=== PATIENT | female | born 1980 | race Two or more races ===

== ENCOUNTER 2019-06-24 15:44 | Emergency (ER) | payer MEDICAID ==
[~2019-06-24] VITALS: Ht 167.6 cm; Wt 55.0 kg
[2019-06-24] MEDS ORDERED: SODIUM CHLORIDE 0.9% 1,000 ML IV ONE (16:17)
[2019-06-24] MEDS ORDERED: KETOROLAC 30MG/ML VIAL IV STA (16:17)
[2019-06-24 16:55] LABS: BASOPHILS % 0.3 % (0.0-2.0); EOSINOPHILS % 1.5 % (0.0-5.0); HEMATOCRIT. 35.2 % (36.0-48.0); HEMOGLOBIN. 12.3 g/dL (12.0-16.0); MEAN CORPUSCULAR HEMOGLOBIN 30.9 pg (28.0-32.0); MEAN CORPUSCULAR VOLUME 88.8 fL (81.0-99.0); MEAN PLATELET VOLUME 8.8 fl (7.4-10.4); MONOCYTES % 6.8 % (2.0-8.0); NEUTROPHILS % 65.4 % (40.0-76.0); PLATELET 221 x1000/uL (130-400); RED BLOOD CELL COUNT 3.97 mill/uL (4.2-5.4); RED CELL DISTRIBUTION WIDTH 13.7 % (11.6-14.6)
[2019-06-24 16:57] LABS: CLARITY URINE CLOUDY (CLEAR); COLOR URINE YELLOW (YELLOW); KETONES URINE NEGATIVE (NEGATIVE); LEUKOCYTE ESTERASE URINE NEGATIVE (NEGATIVE); NITRITE URINE NEGATIVE (NEGATIVE); OCCULT BLOOD URINE TRACE (NEGATIVE); PH URINE 5.5 (4.5-8.0); PROTEIN URINE NEGATIVE (NEGATIVE); SPECIFIC GRAVITY URINE 1.022 (1.005-1.030); UROBILINOGEN URINE 0.2 E.U./dL (0.2-1.0)
[2019-06-24 16:58] LABS: CHLORIDE 109 mEq/L (98-107)
[2019-06-24 16:59] LABS: PROTHROMBIN TIME 10.2 sec (9.6-11.0)
[2019-06-24 19:30] VITALS: BP 96/57
== END 2019-06-24 19:38 | disposition home or self-care (01) ==
LOC: ER 15:44
DX: M54.89 Other dorsalgia (principal); R10.9 Unspecified abdominal pain; M25.571 Pain in right ankle and joints of right foot; G82.20 Paraplegia, unspecified
CPT/HCPCS: 36415; 80053; 81003; 81025; 83690; 85025; 85610; 96374; 99283; J1885; J7030

== ENCOUNTER 2019-10-07 15:26 | Emergency (ER) | payer MEDICAID ==
[~2019-10-07] VITALS: Ht 162.6 cm; Wt 60.0 kg
[~2019-10-07 15:26] MED LIST: BACL20TA PO; CEPH-569 MT; GABA800T PO; IBUP-2028 PO; MIDO10TA MT; TRAM100C3 PO
[2019-10-07] MEDS ORDERED: KETOROLAC 60MG/2ML VIAL IM STA (15:50)
[2019-10-07] MEDS ORDERED: HYDROCODONE/ACETAMINOPHEN 5/325MG TABLET PO ONE (17:30)
[2019-10-07 18:45] VITALS: BP 102/63
== END 2019-10-07 18:55 | disposition home or self-care (01) ==
LOC: ER 15:26
DX: M54.89 Other dorsalgia (principal); G82.20 Paraplegia, unspecified; R03.0 Elevated blood-pressure reading, without diagnosis of hypertension; Z87.828 Personal history of other (healed) physical injury and trauma; Z79.899 Other long term (current) drug therapy
CPT/HCPCS: 71045; 96372; 99283; J1885; Z7610

== ENCOUNTER 2019-12-28 15:56 | Emergency (ER) | payer MEDICAID ==
[~2019-12-28] VITALS: Ht 162.6 cm; Wt 68.0 kg
[2019-12-28] MEDS ORDERED: KETOROLAC 60MG/2ML VIAL IM ONE (21:15)
[2019-12-28 21:23] VITALS: BP 135/80
== END 2019-12-28 21:24 | disposition home or self-care (01) ==
LOC: ER 15:56
DX: G89.29 Other chronic pain (principal); M54.5 Low back pain; G82.20 Paraplegia, unspecified; Z88.2 Allergy status to sulfonamides; Z79.899 Other long term (current) drug therapy
CPT/HCPCS: 96372; 99283; J1885

== ENCOUNTER 2019-12-30 08:09 | Emergency (ER) | payer MEDICAID ==
[~2019-12-30] VITALS: Ht 162.6 cm; Wt 63.0 kg
[2019-12-30 08:23] VITALS: BP 115/74
[2019-12-30] MEDS ORDERED: KETOROLAC 60MG/2ML VIAL IM ONE (10:30)
[2019-12-30] MEDS ORDERED: LIDOCAINE HCL 2% JELLY 5ML MM ONE (10:30)
[2019-12-30] MEDS ORDERED: LIDOCAINE HCL 2% JELLY 5ML MM NR (10:45)
== END 2019-12-30 11:20 | disposition home or self-care (01) ==
LOC: ER 08:09
DX: K60.2 Anal fissure, unspecified (principal); K59.00 Constipation, unspecified; Z88.2 Allergy status to sulfonamides; G82.20 Paraplegia, unspecified
CPT/HCPCS: 96372; 99283; J1885

== ENCOUNTER 2024-09-09 03:04 | Emergency (ER) | payer MEDICAID ==
[~2024-09-09] VITALS: Ht 170.2 cm; Wt 65.0 kg
[2024-09-09 03:22] VITALS: O2SAT 99
[2024-09-09 06:56] LABS: CHLORIDE 109 mEq/L (98-107); POTASSIUM 3.5 mEq/L (3.5-5.1); SODIUM 139 mEq/L (136-145)
[2024-09-09 06:57] LABS: CALCIUM 8.5 mg/dL (8.7-10.4); CARBON DIOXIDE 26 mEq/L (21-32)
[2024-09-09 06:59] LABS: HCG SCREEN NEGATIVE
[2024-09-09 07:02] LABS: CREATININE 0.5 mg/dL (0.6-1.0); GLUCOSE 97 mg/dL (70-105); UREA NITROGEN BLOOD 6 mg/dL (9-23)
[2024-09-09 07:04] LABS: ALANINE AMINOTRANSFERASE < 7 IU/L (10-49); ALBUMIN 3.4 g/dL (3.2-4.8); ASPARTATE AMINOTRANSFERASE 11 IU/L (<34); BILIRUBIN DIRECT 0.1 mg/dL (<=3.0)
[2024-09-09 07:05] LABS: BILIRUBIN TOTAL 0.4 mg/dL (0.1-1.0); PROTEIN TOTAL 6.4 g/dL (6.0-8.3); PROTHROMBIN TIME 10.9 sec (9.6-11.0)
[2024-09-09 07:06] LABS: BASOPHILS % 0.6 % (0.0-2.0); DIFFERENTIAL COMMENT 0; EOSINOPHILS % 0.6 % (0.0-5.0); HEMATOCRIT. 30.9 % (36.0-48.0); HEMOGLOBIN. 9.9 g/dL (12.0-16.0); LYMPHOCYTES % 32.6 % (20.0-50.0); MEAN CORPUSCULAR HEMOGLOBIN 25.1 pg (28.0-32.0); MEAN CORPUSCULAR VOLUME 78.4 fL (81.0-99.0); MEAN PLATELET VOLUME 7.8 fl (7.4-10.4); MONOCYTES % 6.4 % (2.0-8.0); NEUTROPHILS % 59.8 % (40.0-76.0); PLATELET 361 x1000/uL (130-400); RED BLOOD CELL COUNT 3.94 mill/uL (4.2-5.4); WHITE BLOOD COUNT 8.3 x1000/uL (4.5-11.0)
[2024-09-09 07:54] LABS: ETHANOL BLOOD < 10 mg/dL (<10)
[2024-09-09] MEDS: ACETAMINOPHEN 325MG TABLET PO ONE (08:20)
[2024-09-09 09:49] LABS: CLARITY URINE CLOUDY (CLEAR); COLOR URINE YELLOW (YELLOW); GLUCOSE URINE NEGATIVE (NEGATIVE); KETONES URINE NEGATIVE (NEGATIVE); LEUKOCYTE ESTERASE URINE 1+ (NEGATIVE); NITRITE URINE POSITIVE (NEGATIVE); OCCULT BLOOD URINE 3+ (NEGATIVE); PROTEIN URINE NEGATIVE (NEGATIVE); SPECIFIC GRAVITY URINE 1.013 (1.005-1.030)
[2024-09-09 10:02] LABS: MUCUS URINE 4+ /lpf (< = 2+); SQUAMOUS EPITHELIAL CELL URINE FEW /lpf (RARE/1+)
[2024-09-09 10:04] LABS: BACTERIA URINE 4+
[2024-09-09 10:18] LABS: *AMPHETAMINES SCREEN URINE NEGATIVE (NEGATIVE); *BENZODIAZEPINES SCREEN URINE NEGATIVE (NEGATIVE)
[2024-09-09 10:19] LABS: *BARBITURATES SCREEN URINE NEGATIVE (NEGATIVE); *COCAINE SCREEN URINE NEGATIVE (NEGATIVE); CANNABINOID URINE SCREEN NEGATIVE (NEGATIVE); ECSTASY MDMA SCREEN URINE NEGATIVE (NEGATIVE); METHADONE URINE SCREEN NEGATIVE (NEGATIVE); OPIATES URINE SCREEN NEGATIVE (NEGATIVE); PHENCYCLIDINE URINE SCREEN NEGATIVE (NEGATIVE)
[2024-09-09] MEDS ORDERED: CEFP100T8 MT (11:24)
[2024-09-09 12:26] VITALS: BP 137/80; PULSE 81; RESP 16; TEMP 36.11400; O2SAT 99
== END 2024-09-09 12:26 | disposition home or self-care (01) ==
LOC: ER 03:20
DX: N39.0 Urinary tract infection, site not specified (principal); Z88.2 Allergy status to sulfonamides; Z79.899 Other long term (current) drug therapy
CPT/HCPCS: 36415; 74176; 80048; 80076; 80305; 80320; 81003; 84703; 85025; 87077; 87186; 93005; 99284; G0480

== ENCOUNTER 2025-06-15 21:16 | Inpatient (IN) | payer MEDICAID ==
[~2025-06-15] VITALS: Ht 162.6 cm; Wt 52.2 kg
[~2025-06-15 21:16] MED LIST changes: +CEFP100T8 MT; -MIDO10TA MT; +MIDO10TA3 MT
[2025-06-15 21:18] VITALS: O2SAT 99
[2025-06-15] MEDS: KETOROLAC 15MG/ML VIAL IV ONE (23:43)
[2025-06-15] MEDS: SODIUM CHLORIDE 0.9% 1,000 ML IV ONE (23:44)
[2025-06-16] LABS: CREATININE 0.4 mg/dL (0.6-1.0); UREA NITROGEN BLOOD 9 mg/dL (9-23)
[2025-06-16 00:01] LABS: HEMATOCRIT. 26.2 % (36.0-48.0); HEMOGLOBIN. 8.4 g/dL (12.0-16.0); MEAN PLATELET VOLUME 6.5 fl (7.4-10.4); PLATELET 863 x1000/uL (130-400); RED BLOOD CELL COUNT 3.76 mill/uL (4.2-5.4); RED CELL DISTRIBUTION WIDTH 26.7 % (11.6-14.6)
[2025-06-16 01:09] LABS: LYMPHOCYTES % MANUAL 18.0 % (20.0-60.0); MONOCYTES % MANUAL 6.0 % (2.0-8.0); NEUTROPHILS % MANUAL 76.0 % (45.0-75.0)
[2025-06-16 01:10] LABS: PLATELET ESTIMATE MARKEDLY INCREASED
[2025-06-16 04:42] LABS: CLARITY URINE CLOUDY (CLEAR); COLOR URINE YELLOW (YELLOW); GLUCOSE URINE NEGATIVE (NEGATIVE); KETONES URINE NEGATIVE (NEGATIVE); LEUKOCYTE ESTERASE URINE TRACE (NEGATIVE); NITRITE URINE NEGATIVE (NEGATIVE); OCCULT BLOOD URINE 2+ (NEGATIVE); PH URINE 6.0 (4.5-8.0); PROTEIN URINE 1+ (NEGATIVE); SPECIFIC GRAVITY URINE 1.009 (1.005-1.030); UROBILINOGEN URINE 1.0 E.U./dL (0.2-1.0)
[2025-06-16] MEDS: MORPHINE SULFATE 4 MG/ML INJ (FOR IV/IM USE) IV ONE (05:06)
[2025-06-16] MEDS ORDERED: NALO4SPR22 (06:29)
[2025-06-16] MEDS ORDERED: NAPR-681 PO (06:29)
[2025-06-16 06:36] LABS: BACTERIA URINE 2+; SQUAMOUS EPITHELIAL CELL URINE FEW /lpf (RARE/1+); WBC URINE 0-2 /hpf (0-2)
[2025-06-16 08:00] VITALS: BP 88/44; PULSE 119; RESP 20; TEMP 36.8628
[2025-06-16] MEDS ORDERED: ONDANSETRON HCL 4MG/2ML INJ IV PRN (08:15)
[2025-06-16] MEDS ORDERED: MAGNESIUM/ALUMINUM HYDROXIDE/SIMETHICONE 30ML UDC PO PRN (08:15)
[2025-06-16] MEDS ORDERED: DOCUSATE SODIUM 100MG CAPSULE PO PRN (08:15)
[2025-06-16] MEDS ORDERED: IPRATROPIUM/ALBUTEROL 0.5-3(2.5)MG/3ML NEB HHN PRN (08:15)
[2025-06-16] MEDS ORDERED: CLONIDINE 0.1MG TABLET PO PRN (08:15)
[2025-06-16] MEDS ORDERED: GUAIFENESIN 200MG/10ML SUGAR FREE UDC PO PRN (08:15)
[2025-06-16] MEDS ORDERED: NALOXONE HCL 0.4MG/ML VIAL IV PRN (09:30)
[2025-06-16] MEDS: MORPHINE SULFATE 2 MG/ML INJ (NOT FOR IM USE) IV PRN (09:55)
[2025-06-16] MEDS: ENOXAPARIN 40MG/0.4ML SYR SUBCUT SCH (09:55)
[2025-06-16] MEDS: POTASSIUM CHLORIDE 20MEQ TABLET SR PO NR (09:56)
[2025-06-16 10:11] VITALS: BP_SYST 80; BP_SYST 88; BP_DIAS 40; BP_DIAS 44; PULSE 126; RESP 18; TEMP 36.8; TEMP 37.1; O2SAT 98
[2025-06-16] MEDS: SODIUM CHLORIDE 0.9% 1,000 ML IV SCH (10:44)
[2025-06-16] MEDS: VANCOMYCIN 1.25GM/250ML 250 ML IV SCH (11:00)
[2025-06-16] MEDS: CEFTRIAXONE 1GM/50ML 100 ML IV SCH (11:09)
[2025-06-16 12:00] VITALS: BP 88/44; PULSE 119; RESP 18; TEMP 36.8; O2SAT 98
[2025-06-16] MEDS: PANTOPRAZOLE SODIUM 40 MG/VIAL IV SCH (13:39)
[2025-06-16 16:00] VITALS: BP 105/61; PULSE 110; RESP 18; TEMP 36.7; O2SAT 96
[2025-06-16] MEDS: HYDROCODONE/ACETAMINOPHEN 7.5/325MG TABLET PO PRN (18:49)
[2025-06-16 20:00] VITALS: BP 112/70; PULSE 88; RESP 17; TEMP 36.1; O2SAT 97
[2025-06-16] MEDS: VANCOMYCIN 1G PREMIX 200 ML IV SCH (20:51)
[2025-06-16 22:34] LABS: FOLIC ACID (FOLATE) SERUM 6.75 ng/mL (>5.38)
[2025-06-16 22:35] LABS: VITAMIN B12 SERUM 250 pg/mL (211-911)
[2025-06-17] VITALS: BP 123/78; PULSE 78; RESP 18; TEMP 36.4; O2SAT 98
[2025-06-17 04:00] VITALS: BP 110/76; PULSE 74; RESP 17; TEMP 36.6; O2SAT 99
[2025-06-17 07:31] LABS: BASOPHILS % 0.7 % (0.0-2.0); EOSINOPHILS % 0.3 % (0.0-5.0); HEMATOCRIT. 24.1 % (36.0-48.0); HEMOGLOBIN. 7.9 g/dL (12.0-16.0); LYMPHOCYTES % 18.6 % (20.0-50.0); MEAN PLATELET VOLUME 6.4 fl (7.4-10.4); MONOCYTES % 6.6 % (2.0-8.0); NEUTROPHILS % 73.8 % (40.0-76.0); PLATELET 719 x1000/uL (130-400); RED BLOOD CELL COUNT 3.50 mill/uL (4.2-5.4); RED CELL DISTRIBUTION WIDTH 26.7 % (11.6-14.6)
[2025-06-17] MEDS ORDERED: NON FORMULARY MED XX SCH ×2 (07:45→14:00)
[2025-06-17] MEDS: MAGNESIUM 2 G PREMIX 50 ML IV NR (07:45)
[2025-06-17 07:50] LABS: TRIGLYCERIDE 111 mg/dL (0-150); UREA NITROGEN BLOOD 7 mg/dL (9-23)
[2025-06-17 07:53] LABS: CREATININE 0.3 mg/dL (0.6-1.0)
[2025-06-17 07:54] LABS: ASPARTATE AMINOTRANSFERASE 48 IU/L (<34)
[2025-06-17 07:55] LABS: BILIRUBIN DIRECT < 0.1 mg/dL (<=3.0); LDL CHOLESTEROL 79 mg/dL (5-100)
[2025-06-17 07:56] LABS: BILIRUBIN TOTAL 0.2 mg/dL (0.1-1.0); PROTEIN TOTAL 5.6 g/dL (6.0-8.3)
[2025-06-17 07:58] LABS: T4 FREE 1.09 ng/dL (0.89-1.76)
[2025-06-17 08:00] VITALS: BP 127/74; PULSE 74; RESP 18; TEMP 36.1; O2SAT 100
[2025-06-17 08:05] LABS: ADD RBC MORPHOLOGY YES
[2025-06-17] MEDS: PIPERACILLIN/TAZO 3.375G/50ML 50 ML IV SCH (09:04)
[2025-06-17] MEDS ORDERED: LIDOCAINE HCL/EPINEPHRINE 1%-EPI 1:100,000 10ML VIAL INFIL NR (11:00)
[2025-06-17] MEDS: IRON SUCROSE COMPLEX 100 MG/5 ML ML IV SCH (11:14)
[2025-06-17] MEDS: ZINC SULFATE 220 MG ( 50 ) CAPSULE PO SCH (11:14)
[2025-06-17] MEDS: ASCORBIC ACID 500 MG TABLET PO SCH (11:15)
[2025-06-17 12:00] VITALS: BP 102/66; PULSE 84; RESP 19; TEMP 36; O2SAT 95
[2025-06-17 13:58] LABS: PLATELET ESTIMATE INCREASED
[2025-06-17] MEDS ORDERED: IRON SUCROSE COMPLEX 100 MG/5 ML ML IV SCH (14:30)
[2025-06-17] MEDS: POTASSIUM CHLORIDE 20MEQ TABLET SR PO NR (14:48)
[2025-06-17 16:00] VITALS: BP 120/83; PULSE 80; RESP 18; TEMP 36.1; O2SAT 99
[2025-06-17] MEDS: SODIUM CHLORIDE 0.9% 1,000 ML IV SCH (20:32)
[2025-06-18] VITALS: BP 117/52; PULSE 82; RESP 20; TEMP 36.3; O2SAT 100
[2025-06-18] MEDS: SODIUM HYPOCHLORITE 0.125% 473ML SOLUTION TOP SCH (00:28)
[2025-06-18 08:00] VITALS: BP 99/57; PULSE 87; RESP 18; TEMP 36; O2SAT 95
[2025-06-18 08:56] LABS: BASOPHILS % 0.6 % (0.0-2.0); EOSINOPHILS % 0.3 % (0.0-5.0); HEMATOCRIT. 22.9 % (36.0-48.0); HEMOGLOBIN. 7.4 g/dL (12.0-16.0); LYMPHOCYTES % 17.6 % (20.0-50.0); MEAN PLATELET VOLUME 6.5 fl (7.4-10.4); MONOCYTES % 7.4 % (2.0-8.0); NEUTROPHILS % 74.1 % (40.0-76.0); PLATELET 707 x1000/uL (130-400); RED BLOOD CELL COUNT 3.33 mill/uL (4.2-5.4); RED CELL DISTRIBUTION WIDTH 26.1 % (11.6-14.6)
[2025-06-18] MEDS: ENOXAPARIN 30MG/0.3ML SYR SUBCUT SCH (09:00)
[2025-06-18 09:04] LABS: ADD RBC MORPHOLOGY NO
[2025-06-18 09:12] LABS: UREA NITROGEN BLOOD 9 mg/dL (9-23)
[2025-06-18 09:14] LABS: PHOSPHORUS 4.4 mg/dL (2.5-4.9)
[2025-06-18 09:22] LABS: CREATININE 0.4 mg/dL (0.6-1.0)
[2025-06-18] MEDS: MAGNESIUM 2 G PREMIX 50 ML IV ONE (10:15)
[2025-06-18 12:00] VITALS: BP 87/56; PULSE 100; RESP 20; TEMP 36.1; O2SAT 100
[2025-06-18] MEDS: KCL 20MEQ/100ML PREMIX 100 ML IV SCH (12:02)
[2025-06-18] MEDS: VANCOMYCIN 750MG/150ML (BAXTER) IV SCH (13:07)
[2025-06-18] MEDS: MIDODRINE HCL 5MG TABLET PO PRN (13:51)
[2025-06-18] MEDS: POTASSIUM CHLORIDE 20MEQ TABLET SR PO SCH (15:21)
[2025-06-18 16:00] VITALS: BP 97/56; PULSE 100; RESP 20; TEMP 36.2; O2SAT 100
[2025-06-18 20:00] VITALS: BP 97/58; PULSE 100; RESP 20; TEMP 36.3; O2SAT 98
[2025-06-18] MEDS: ACETAMINOPHEN 325MG TABLET PO PRN (22:47)
[2025-06-19] VITALS (8 sets, daily range): BP systolic 81–108; BP diastolic 48–64; PULSE 79–101; RESP 18–22; TEMP 36.2–36.7; O2SAT 95–100
[2025-06-19] MEDS: SODIUM CHLORIDE 0.9% 1,000 ML IV ONE ×2 (02:14→08:57)
[2025-06-19 06:23] LABS: CREATININE 0.9 mg/dL (0.6-1.0); UREA NITROGEN BLOOD 15 mg/dL (9-23)
[2025-06-19 07:15] LABS: PLATELET 648 x1000/uL (130-400); RED BLOOD CELL COUNT 2.75 mill/uL (4.2-5.4); RED CELL DISTRIBUTION WIDTH 26.0 % (11.6-14.6)
[2025-06-19] MEDS: MIDODRINE HCL 5MG TABLET PO SCH (10:19)
[2025-06-19] MEDS: MAGNESIUM 4 G PREMIX 100 ML IV ONE (10:25)
[2025-06-19 10:27] LABS: INR 1.0
[2025-06-19] MEDS ORDERED: CYANOCOBALAMIN 1000MCG/ML VIAL IM NR (16:30)
[2025-06-19] MEDS: CYANOCOBALAMIN 1000MCG/ML VIAL IM SCH (16:55)
[2025-06-19] MEDS: SUCRALFATE 1G TABLET PO SCH (16:55)
[2025-06-19] MEDS: MEROPENEM 1G/100ML 100 ML IV SCH (16:58)
[2025-06-19] MEDS: QUETIAPINE FUMARATE 25MG TABLET PO SCH (21:32)
[2025-06-20] VITALS (11 sets, daily range): BP systolic 79–114; BP diastolic 39–76; PULSE 76–104; RESP 12–20; TEMP 36.33624–36.7; O2SAT 96–100
[2025-06-20 06:28] LABS: CREATININE 1.5 mg/dL (0.6-1.0); UREA NITROGEN BLOOD 16 mg/dL (9-23)
[2025-06-20 06:30] LABS: PHOSPHORUS 5.5 mg/dL (2.5-4.9)
[2025-06-20 07:00] LABS: BASOPHILS % 1.1 % (0.0-2.0); EOSINOPHILS % 2.7 % (0.0-5.0); LYMPHOCYTES % 29.4 % (20.0-50.0); MEAN PLATELET VOLUME 6.5 fl (7.4-10.4); MONOCYTES % 7.4 % (2.0-8.0); NEUTROPHILS % 59.4 % (40.0-76.0); PLATELET 694 x1000/uL (130-400); RED BLOOD CELL COUNT 2.86 mill/uL (4.2-5.4); RED CELL DISTRIBUTION WIDTH 25.6 % (11.6-14.6)
[2025-06-20 08:03] LABS: HEMOGLOBIN. 6.4 g/dL (12.0-16.0)
[2025-06-20 08:04] LABS: HEMATOCRIT. 20.1 % (36.0-48.0)
[2025-06-20] MEDS: FOLIC ACID 1MG TABLET PO SCH (09:55)
[2025-06-20] MEDS ORDERED: LIDOCAINE HCL 1% 10 MG/ML 10ML VIAL ONE (14:52)
[2025-06-20] MEDS: CALCIUM GLUCONATE 100MG/ML 10ML VIAL IV NR (16:28)
[2025-06-20] MEDS: SODIUM CHLORIDE 0.9% 1,000 ML IV ONE (16:29)
[2025-06-20] MEDS: MEROPENEM 1G/100ML 100 ML IV SCH (16:29)
[2025-06-20] MEDS ORDERED: SODIUM CHLORIDE 0.9% 1,000 ML IV NR (17:00)
[2025-06-20] MEDS: PANTOPRAZOLE SODIUM 40 MG/VIAL IV SCH (20:43)
[2025-06-20 22:08] LABS: CREATININE 1.6 mg/dL (0.6-1.0); UREA NITROGEN BLOOD 18.0 mg/dL (9-23)
[2025-06-20] MEDS: VANCOMYCIN 500MG/100ML IV SCH (23:21)
[2025-06-21] VITALS: BP 112/75; PULSE 94; RESP 18; TEMP 36.7; O2SAT 98
[2025-06-21 04:00] VITALS: BP 96/59; PULSE 97; RESP 18; TEMP 36.8; O2SAT 99
[2025-06-21 07:24] LABS: BASOPHILS % 1.0 % (0.0-2.0); EOSINOPHILS % 3.0 % (0.0-5.0); HEMATOCRIT. 24.5 % (36.0-48.0); HEMOGLOBIN. 7.9 g/dL (12.0-16.0); LYMPHOCYTES % 20.8 % (20.0-50.0); MEAN PLATELET VOLUME 6.4 fl (7.4-10.4); MONOCYTES % 6.3 % (2.0-8.0); NEUTROPHILS % 68.9 % (40.0-76.0); PLATELET 644 x1000/uL (130-400); RED BLOOD CELL COUNT 3.42 mill/uL (4.2-5.4); RED CELL DISTRIBUTION WIDTH 25.6 % (11.6-14.6)
[2025-06-21 07:31] LABS: CREATININE 1.8 mg/dL (0.6-1.0); UREA NITROGEN BLOOD 20 mg/dL (9-23)
[2025-06-21 07:33] LABS: PHOSPHORUS 4.9 mg/dL (2.5-4.9)
[2025-06-21 08:00] VITALS: BP 98/56; PULSE 86; RESP 16; TEMP 37.1; O2SAT 100
[2025-06-21 08:16] LABS: ADD RBC MORPHOLOGY NO
[2025-06-21] MEDS: ARIPIPRAZOLE 5MG TABLET PO SCH (09:09)
[2025-06-21] MEDS: SODIUM CHLORIDE 0.9% 500 ML IV ONE (09:30)
[2025-06-21 12:00] VITALS: BP 95/61; PULSE 97; RESP 14; TEMP 36.9; O2SAT 96
[2025-06-21] MEDS ORDERED: NALOXONE HCL 0.4MG/ML VIAL IV PRN (14:15)
[2025-06-21 16:00] VITALS: BP 106/69; PULSE 92; RESP 18; TEMP 37.1; O2SAT 96
[2025-06-21] MEDS: SODIUM CHLORIDE 0.9% 1,000 ML IV NR (18:14)
[2025-06-21 20:33] VITALS: BP 99/65; PULSE 64; RESP 18; TEMP 37.5; O2SAT 96
[2025-06-21] MEDS: TRAZODONE HCL 50MG TABLET PO SCH (21:41)
[2025-06-22 00:44] VITALS: BP 93/52; PULSE 100; RESP 16; TEMP 36.6; O2SAT 96
[2025-06-22 04:00] VITALS: BP 94/64; PULSE 94; RESP 19; TEMP 36.6; O2SAT 96
[2025-06-22 06:49] LABS: BASOPHILS % 0.7 % (0.0-2.0); EOSINOPHILS % 5.5 % (0.0-5.0); HEMATOCRIT. 24.2 % (36.0-48.0); HEMOGLOBIN. 7.8 g/dL (12.0-16.0); LYMPHOCYTES % 27.0 % (20.0-50.0); MEAN PLATELET VOLUME 6.3 fl (7.4-10.4); MONOCYTES % 5.7 % (2.0-8.0); NEUTROPHILS % 61.1 % (40.0-76.0); PLATELET 634 x1000/uL (130-400); RED BLOOD CELL COUNT 3.34 mill/uL (4.2-5.4); RED CELL DISTRIBUTION WIDTH 26.2 % (11.6-14.6)
[2025-06-22 06:54] LABS: CREATININE 1.8 mg/dL (0.6-1.0); UREA NITROGEN BLOOD 20 mg/dL (9-23)
[2025-06-22 06:56] LABS: PHOSPHORUS 4.7 mg/dL (2.5-4.9)
[2025-06-22 08:00] VITALS: BP 115/78; PULSE 89; RESP 18; TEMP 35.6; O2SAT 98
[2025-06-22] MEDS ORDERED: SODIUM CHLORIDE 0.9% 1,000 ML IV NR (08:15)
[2025-06-22] MEDS: FERROUS SULFATE 325MG TABLET PO SCH (09:21)
[2025-06-22] MEDS: HYDROCODONE/ACETAMINOPHEN 7.5/325MG TABLET PO PRN (09:37)
[2025-06-22 12:00] VITALS: BP 96/64; PULSE 91; RESP 18; TEMP 36.3; O2SAT 97
[2025-06-22] MEDS: SODIUM CHLORIDE 0.9% 1,000 ML IV ONE (15:00)
[2025-06-22 16:00] VITALS: BP 90/56; PULSE 87; RESP 18; TEMP 36.5; O2SAT 97
[2025-06-22 20:00] VITALS: BP 102/66; PULSE 94; RESP 20; TEMP 36.5; O2SAT 98
[2025-06-22] MEDS: QUETIAPINE FUMARATE 25MG TABLET PO SCH (20:37)
[2025-06-22] MEDS: TRAZODONE HCL 50MG TABLET PO SCH (20:38)
[2025-06-23] VITALS (7 sets, daily range): BP systolic 98–111; BP diastolic 61–76; PULSE 88–102; RESP 19–20; TEMP 36.5–37.1; O2SAT 98–100
[2025-06-23 08:08] LABS: CREATININE 1.4 mg/dL (0.6-1.0)
[2025-06-23 08:09] LABS: UREA NITROGEN BLOOD 20 mg/dL (9-23)
[2025-06-23 08:11] LABS: PHOSPHORUS 5.1 mg/dL (2.5-4.9)
[2025-06-23] MEDS: FAMOTIDINE 20MG/2ML VIAL IV SCH (08:34)
[2025-06-23 08:37] LABS: BASOPHILS % 0.7 % (0.0-2.0); EOSINOPHILS % 4.5 % (0.0-5.0); HEMATOCRIT. 25.6 % (36.0-48.0); HEMOGLOBIN. 8.3 g/dL (12.0-16.0); LYMPHOCYTES % 18.9 % (20.0-50.0); MEAN PLATELET VOLUME 6.2 fl (7.4-10.4); MONOCYTES % 6.2 % (2.0-8.0); NEUTROPHILS % 69.7 % (40.0-76.0); PLATELET 587 x1000/uL (130-400); RED BLOOD CELL COUNT 3.54 mill/uL (4.2-5.4); RED CELL DISTRIBUTION WIDTH 26.8 % (11.6-14.6)
[2025-06-23 09:02] LABS: ADD RBC MORPHOLOGY NO
[2025-06-23] MEDS: MAGNESIUM 2 G PREMIX 50 ML IV NR (09:15)
[2025-06-23] MEDS: SODIUM CHLORIDE 0.9% 1,000 ML IV ONE (14:03)
[2025-06-23] MEDS: MAGNESIUM 2 G PREMIX 50 ML IV SCH (14:48)
[2025-06-24] VITALS (7 sets, daily range): BP systolic 94–122; BP diastolic 53–81; PULSE 85–108; RESP 18; TEMP 36.3–36.9; O2SAT 95–99
[2025-06-24 10:33] LABS: BASOPHILS % 1.0 % (0.0-2.0); EOSINOPHILS % 6.5 % (0.0-5.0); HEMATOCRIT. 25.1 % (36.0-48.0); HEMOGLOBIN. 8.1 g/dL (12.0-16.0); LYMPHOCYTES % 29.4 % (20.0-50.0); MEAN PLATELET VOLUME 6.2 fl (7.4-10.4); MONOCYTES % 6.2 % (2.0-8.0); NEUTROPHILS % 56.9 % (40.0-76.0); PLATELET 558 x1000/uL (130-400); RED BLOOD CELL COUNT 3.44 mill/uL (4.2-5.4); RED CELL DISTRIBUTION WIDTH 27.2 % (11.6-14.6)
[2025-06-24 11:28] LABS: CREATININE 1.4 mg/dL (0.6-1.0)
[2025-06-24 11:29] LABS: UREA NITROGEN BLOOD 21 mg/dL (9-23)
[2025-06-24 11:30] LABS: PHOSPHORUS 4.8 mg/dL (2.5-4.9)
[2025-06-24] MEDS: SODIUM CHLORIDE 0.9% 1,000 ML IV ONE (14:45)
[2025-06-25] VITALS: BP 111/76; PULSE 89; RESP 16; TEMP 36.6; O2SAT 98
[2025-06-25] MEDS: MIDODRINE HCL 5MG TABLET PO SCH (01:15)
[2025-06-25] MEDS: PANTOPRAZOLE SODIUM 40 MG/VIAL IV NR (02:00)
[2025-06-25 04:00] VITALS: BP 107/70; PULSE 96; RESP 14; TEMP 36.5; O2SAT 100
[2025-06-25] MEDS ORDERED: TRAMADOL 50MG TABLET PO NR (04:30)
[2025-06-25 08:00] VITALS: BP 107/77; PULSE 91; RESP 20; TEMP 36.3; O2SAT 99
[2025-06-25 08:50] LABS: CREATININE 1.1 mg/dL (0.6-1.0); UREA NITROGEN BLOOD 21 mg/dL (9-23)
[2025-06-25 08:52] LABS: PHOSPHORUS 3.8 mg/dL (2.5-4.9)
[2025-06-25 09:24] LABS: HEMATOCRIT. 24.2 % (36.0-48.0); HEMOGLOBIN. 7.7 g/dL (12.0-16.0); MEAN PLATELET VOLUME 6.4 fl (7.4-10.4); PLATELET 506 x1000/uL (130-400); RED BLOOD CELL COUNT 3.35 mill/uL (4.2-5.4); RED CELL DISTRIBUTION WIDTH 27.5 % (11.6-14.6)
[2025-06-25 12:00] VITALS: BP 105/70; PULSE 95; RESP 20; TEMP 36.4; O2SAT 97
[2025-06-25] MEDS: MAGNESIUM 2 G PREMIX 50 ML IV NR (13:31)
[2025-06-25 14:10] LABS: BAND% 1.0 % (1.0-6.0); EOSINOPHILS % MANUAL 5.0 % (0.0-5.0); LYMPHOCYTES % MANUAL 29.0 % (20.0-60.0); MONOCYTES % MANUAL 4.0 % (2.0-8.0); NEUTROPHILS % MANUAL 61.0 % (45.0-75.0); PLATELET ESTIMATE INCREASED
[2025-06-25 20:00] VITALS: BP 115/78; PULSE 100; RESP 19; TEMP 36.4; O2SAT 99
[2025-06-26] VITALS: BP 126/86; PULSE 98; RESP 18; TEMP 36.3; O2SAT 98
[2025-06-26 04:00] VITALS: BP 139/89; PULSE 89; RESP 19; TEMP 36.5; O2SAT 99
[2025-06-26 08:00] VITALS: BP 97/64; PULSE 75; RESP 18; TEMP 36.3; O2SAT 97
[2025-06-26 08:09] LABS: BASOPHILS % 1.3 % (0.0-2.0); EOSINOPHILS % 3.1 % (0.0-5.0); HEMATOCRIT. 23.8 % (36.0-48.0); HEMOGLOBIN. 7.6 g/dL (12.0-16.0); LYMPHOCYTES % 34.9 % (20.0-50.0); MEAN PLATELET VOLUME 6.6 fl (7.4-10.4); MONOCYTES % 5.3 % (2.0-8.0); NEUTROPHILS % 55.4 % (40.0-76.0); PLATELET 559 x1000/uL (130-400); RED BLOOD CELL COUNT 3.26 mill/uL (4.2-5.4); RED CELL DISTRIBUTION WIDTH 27.6 % (11.6-14.6)
[2025-06-26 08:19] LABS: CREATININE 0.9 mg/dL (0.6-1.0); UREA NITROGEN BLOOD 24 mg/dL (9-23)
[2025-06-26 08:22] LABS: PHOSPHORUS 3.8 mg/dL (2.5-4.9)
[2025-06-26 12:00] VITALS: BP 100/50; PULSE 90; RESP 19; TEMP 36.1; O2SAT 98
[2025-06-26] MEDS ORDERED: MEROPENEM 1G/100ML 100 ML IV SCH (14:00)
[2025-06-26 16:00] VITALS: BP 117/84; PULSE 100; RESP 18; TEMP 36.2; O2SAT 100
[2025-06-26] MEDS: MORPHINE SULFATE 2 MG/ML INJ (NOT FOR IM USE) IV PRN (16:28)
[2025-06-26 20:00] VITALS: BP 105/63; PULSE 110; RESP 18; TEMP 36.3; O2SAT 97
[2025-06-27] VITALS: BP 104/73; PULSE 109; RESP 18; TEMP 36.3; O2SAT 98
[2025-06-27] MEDS ORDERED: HYDROCODONE/ACETAMINOPHEN 5/325MG TABLET PO NR (03:45)
[2025-06-27 04:00] VITALS: BP 99/63; PULSE 107; RESP 18; TEMP 36.7; O2SAT 98
[2025-06-27 08:00] VITALS: BP 118/79; PULSE 97; RESP 18; TEMP 36.3; O2SAT 97
[2025-06-27] MEDS: FAMOTIDINE 20MG TABLET PO SCH (09:49)
[2025-06-27 12:00] VITALS: BP 100/59; PULSE 110; RESP 18; TEMP 36.7; O2SAT 97
[2025-06-27 16:00] VITALS: BP 96/54; PULSE 81; RESP 16; TEMP 36.1; O2SAT 100
[2025-06-27 19:21] LABS: BASOPHILS % 1.0 % (0.0-2.0); EOSINOPHILS % 2.3 % (0.0-5.0); HEMATOCRIT. 23.1 % (36.0-48.0); HEMOGLOBIN. 7.5 g/dL (12.0-16.0); LYMPHOCYTES % 19.8 % (20.0-50.0); MEAN PLATELET VOLUME 6.5 fl (7.4-10.4); MONOCYTES % 4.2 % (2.0-8.0); NEUTROPHILS % 72.7 % (40.0-76.0); PLATELET 538 x1000/uL (130-400); RED BLOOD CELL COUNT 3.14 mill/uL (4.2-5.4); RED CELL DISTRIBUTION WIDTH 28.9 % (11.6-14.6)
[2025-06-27 19:43] LABS: CREATININE 0.9 mg/dL (0.6-1.0)
[2025-06-27 19:44] LABS: UREA NITROGEN BLOOD 23 mg/dL (9-23)
[2025-06-27 20:00] VITALS: BP 109/67; PULSE 109; RESP 20; TEMP 35.9; O2SAT 96
[2025-06-27] MEDS: HYDROCODONE/ACETAMINOPHEN 5/325MG TABLET PO NR (23:19)
[2025-06-28] VITALS: BP 107/71; PULSE 102; RESP 18; TEMP 36.7; O2SAT 100
[2025-06-28 04:00] VITALS: BP 93/54; PULSE 90; RESP 18; TEMP 36.5; O2SAT 97
[2025-06-28 08:00] VITALS: BP 105/70; PULSE 101; RESP 17; TEMP 36.2; O2SAT 99
[2025-06-28 08:13] LABS: BASOPHILS % 1.1 % (0.0-2.0); EOSINOPHILS % 2.9 % (0.0-5.0); HEMATOCRIT. 21.9 % (36.0-48.0); HEMOGLOBIN. 7.1 g/dL (12.0-16.0); LYMPHOCYTES % 34.8 % (20.0-50.0); MEAN PLATELET VOLUME 6.6 fl (7.4-10.4); MONOCYTES % 6.1 % (2.0-8.0); NEUTROPHILS % 55.1 % (40.0-76.0); PLATELET 470 x1000/uL (130-400); RED BLOOD CELL COUNT 3.05 mill/uL (4.2-5.4); RED CELL DISTRIBUTION WIDTH 28.0 % (11.6-14.6)
[2025-06-28 08:15] LABS: CREATININE 0.8 mg/dL (0.6-1.0)
[2025-06-28 08:16] LABS: UREA NITROGEN BLOOD 24 mg/dL (9-23)
[2025-06-28 12:00] VITALS: BP 101/59; PULSE 100; RESP 18; TEMP 36.6; O2SAT 97
[2025-06-28 16:00] VITALS: BP 110/69; PULSE 100; RESP 18; TEMP 36.5; O2SAT 99
[2025-06-28 20:00] VITALS: BP 133/91; PULSE 92; RESP 18; TEMP 35.9; O2SAT 97
[2025-06-29] VITALS: BP 105/64; PULSE 61; RESP 20; TEMP 36.3; O2SAT 97
[2025-06-29 04:00] VITALS: BP 126/87; PULSE 88; RESP 20; TEMP 36.1; O2SAT 98
[2025-06-29 08:00] VITALS: BP 113/80; PULSE 89; RESP 19; TEMP 36.3; O2SAT 97
[2025-06-29 12:00] VITALS: BP 108/66; PULSE 100; RESP 18; TEMP 36.3; O2SAT 98
== END 2025-06-29 14:19 | disposition home health service (06) | DRG 720 ==
LOC: ER 21:16 → 7WST 06-16 01:41 → EDBEDREQTM 06-16 05:07 → EDBEDREQ 06-16 05:07 → EDBEDREQSVC 06-16 05:07 → ENRESERV 06-16 05:16 → ER 06-16 06:05 → 6EST 06-24 00:16
PROVIDERS: ADMIT Internal Medicine; ATTEND Internal Medicine
PROC: 0JB70ZZ Excision of Back Subcutaneous Tissue and Fascia, Open Approach (ICD-10-PCS; principal; 2025-06-17)
PROC: GZ56ZZZ Individual Psychotherapy, Supportive (ICD-10-PCS; 2025-06-19)
PROC: 30233N1 Transfusion of Nonautologous Red Blood Cells into Peripheral Vein, Percutaneous Approach (ICD-10-PCS; 2025-06-20)
PROC: 02HV33Z Insertion of Infusion Device into Superior Vena Cava, Percutaneous Approach (ICD-10-PCS; 2025-06-20)
PROC: B548ZZA Ultrasonography of Superior Vena Cava, Guidance (ICD-10-PCS; 2025-06-20)
DX: A41.51 Sepsis due to Escherichia coli [E. coli] (principal); G93.41 Metabolic encephalopathy; L89.314 Pressure ulcer of right buttock, stage 4; L89.154 Pressure ulcer of sacral region, stage 4; R65.21 Severe sepsis with septic shock; R57.1 Hypovolemic shock; N17.9 Acute kidney failure, unspecified; J90 Pleural effusion, not elsewhere classified; G82.20 Paraplegia, unspecified; E87.1 Hypo-osmolality and hyponatremia; N39.0 Urinary tract infection, site not specified; N31.9 Neuromuscular dysfunction of bladder, unspecified; E87.6 Hypokalemia; D50.9 Iron deficiency anemia, unspecified; F39 Unspecified mood [affective] disorder; L22 Diaper dermatitis; G47.00 Insomnia, unspecified; N18.9 Chronic kidney disease, unspecified; I12.9 Hypertensive chronic kidney disease with stage 1 through stage 4 chronic kidney disease, or unspecified chronic kidney disease; E83.42 Hypomagnesemia; E53.8 Deficiency of other specified B group vitamins; B96.5 Pseudomonas (aeruginosa) (mallei) (pseudomallei) as the cause of diseases classified elsewhere; I82.612 Acute embolism and thrombosis of superficial veins of left upper extremity; F32.9 Major depressive disorder, single episode, unspecified; N18.1 Chronic kidney disease, stage 1; I82.619 Acute embolism and thrombosis of superficial veins of unspecified upper extremity; G62.9 Polyneuropathy, unspecified; G83.9 Paralytic syndrome, unspecified; Z99.3 Dependence on wheelchair; Z74.01 Bed confinement status; Z95.828 Presence of other vascular implants and grafts; Z79.899 Other long term (current) drug therapy; Z75.1 Person awaiting admission to adequate facility elsewhere; Z86.718 Personal history of other venous thrombosis and embolism; Z16.12 Extended spectrum beta lactamase (ESBL) resistance; Z88.2 Allergy status to sulfonamides
CPT/HCPCS: 36415; 36573; 71045; 76770; 80048; 80061; 80076; 80202; 81003; 82040; 82270; 82330; 82550; 82607; 82728; 82746; 83036; 83540; 83550; 83605; 83735; 83880; 83930; 84100; 84145; 84439; 84443; 85014; 85018; 85025; 85027; 85044; 86850; 86900; 86920; 87070; 87077; 87186; 93005; 93970; 97162; 97530; 97542; 99285; A4606; C1725; J0610; J0696; J1308; J1650; J1885; J2003; J2185; J2270; J2470; J2543; J3373; J3420; J3475; J3480; J7030; P9016